=== PATIENT | male | born 1975 | race Caucasian/White ===

== ENCOUNTER 2021-07-29 11:44 | Outpatient (CLI) | payer SELFPAY ==
--- NOTE | 2021-07-29 12:01 | XRAY Report ---
PROCEDURE: Forearm LT INDICATIONS: FB LEFT FOREARM TECHNIQUE: 2 views of the forearm were acquired. COMPARISON: None FINDINGS: Bones: No fractures or dislocations. No suspicious bony lesions. Soft tissues: No suspicious soft tissue calcifications or masses. There is a linear radiodensity me asuring 9 mm overlying the mid ulna. IMPRESSION: Linear radiodensity suggestive of metallic foreign body as above. Reviewed by: Vicky Simon MD on 07/29/2021 12:00 PM PST Approved by: Vicky Simon MD on 07/29/2021 12:00 PM PST Station ID: [id number]
== END 2021-07-29 23:59 | disposition home or self-care (01) ==
LOC: DI.N 11:44
PROVIDERS: ATTEND Physician Assistant
DX: M79.5 Residual foreign body in soft tissue (principal)